=== PATIENT | male | born 1995 | race African-American/Black ===

== ENCOUNTER 2017-06-20 02:59 | Emergency (ER) | payer MEDICAID ==
[~2017-06-20] VITALS: Ht 175.3 cm; Wt 71.0 kg
[2017-06-20 03:03] VITALS: BP 104/56
== END 2017-06-20 04:26 | disposition left against medical advice (07) ==
LOC: EMS 03:00
DX: M25.561 Pain in right knee (principal); Z53.21 Procedure and treatment not carried out due to patient leaving prior to being seen by health care provider
CPT/HCPCS: 99281

== ENCOUNTER 2021-07-08 08:38 | Emergency (ER) | payer MEDICAID ==
[~2021-07-08] VITALS: Ht 177.8 cm; Wt 86.4 kg
[2021-07-08 08:45] VITALS: BP 118/61
[2021-07-08] MEDS: ACETAMINOPHEN 500 MG TABLET PO ONE (09:28)
[2021-07-08] MEDS: IBUPROFEN 600 MG TABLET PO ONE (09:28)
[2021-07-08] MEDS: DOXYCYCLINE HYCLATE 100 MG TABLET PO ONE (09:29)
== END 2021-07-08 09:39 | disposition home or self-care (01) ==
LOC: EMS 08:39
DX: L02.214 Cutaneous abscess of groin (principal); F12.90 Cannabis use, unspecified, uncomplicated
CPT/HCPCS: 99284; Z7502; Z7610

== ENCOUNTER 2022-10-19 10:40 | Emergency (ER) | payer MEDICAID ==
[~2022-10-19] VITALS: Ht 175.3 cm; Wt 81.8 kg
[2022-10-19] MEDS ORDERED: BACITRACIN 0.9 GM PACKET OINTMENT TP ONE (13:15)
[2022-10-19] MEDS ORDERED: IBUP-1554 PO (13:36)
[2022-10-19 13:57] VITALS: BP 126/75
== END 2022-10-19 14:00 | disposition home or self-care (01) ==
LOC: EMS 10:46
DX: S62.336A Displaced fracture of neck of fifth metacarpal bone, right hand, initial encounter for closed fracture (principal); S60.412A Abrasion of right middle finger, initial encounter; F12.90 Cannabis use, unspecified, uncomplicated; X58.XXXA Exposure to other specified factors, initial encounter; Y93.89 Activity, other specified; Y92.89 Other specified places as the place of occurrence of the external cause; Y99.8 Other external cause status
CPT/HCPCS: 99283

== ENCOUNTER 2025-08-27 13:20 | Emergency (ER) | payer MEDICAID ==
[~2025-08-27] VITALS: Ht 175.3 cm; Wt 93.6 kg
[~2025-08-27 13:20] MED LIST: IBUP-1554 PO
[2025-08-27] MEDS: PROCHLORPERAZINE MALEATE 10 MG TABLET PO ONE (14:10)
[2025-08-27] MEDS: IBUPROFEN 600 MG TABLET PO ONE (14:10)
[2025-08-27 14:38] VITALS: TEMP 98.1
[2025-08-27 14:50] VITALS: BP 131/69; PULSE 76; RESP 16; O2SAT 99
== END 2025-08-27 14:51 | disposition home or self-care (01) ==
LOC: EMS 13:20
DX: R51.9 Headache, unspecified (principal); F12.90 Cannabis use, unspecified, uncomplicated; Z02.79 Encounter for issue of other medical certificate
CPT/HCPCS: 99284; Z7502; Z7610